=== PATIENT | male | born 1965 | race Hispanic/Latino ===

== ENCOUNTER 2022-10-22 17:06 | Emergency (ER) | payer OTHER ==
[~2022-10-22] VITALS: Ht 180.3 cm; Wt 81.6 kg
[2022-10-22 19:58] VITALS: BP 141/89
== END 2022-10-22 20:02 | disposition home or self-care (01) ==
LOC: EDH 17:06
DX: U07.1 COVID-19 (principal); Z98.890 Other specified postprocedural states
CPT/HCPCS: 99283; 87635; 87804 ×2; C9803